=== PATIENT | female | born 1980 ===

== ENCOUNTER 2017-12-03 22:01 | Emergency (ER) | payer OTHER ==
[2017-12-03 22:22] VITALS: TEMP 98.7; O2SAT 98
--- NOTE | 2017-12-03 23:13 | ED PDOC ---
HPI: Hypertension/Hypotension Time Seen by Provider: 12/03/17 22:15 Chief Complaint (Nursing): Headache Chief Complaint (Provider): Hypertension History Per: Patient History/Exam Limitations: no limitations Onset/Duration Of Symptoms: Hrs Current Symptoms Are (Timing): Still Present Associated Symptoms: Headache. denies: Chest Pain Additional Complaint(s): 36 year old female presents to the ER for an evaluation of hypertension onset for 3 days. Patient states she gave on November 25 and had no issues with her blood pressure during her (she did have gestational DM though). She was taking Labetalol 100mg twice a day prior to preganncy and since her bp was high yesterday and today she called her doctor who told her to restart it now. She took one pill at 7pm and half of another half pill at 10pm today. Patient reports her blood pressure today was 172/100 and then went up to 178/117 with associated symptom of mild headache. She denies chest pain, vomiting or leg swelling, states she has only mild headache now, it is resolving. PMD: Dr. Lynn OBGYN: Dr. Chin (Non [facility] Provider) Past Medical History Reviewed: Historical Data, Nursing Documentation, Vital Signs Vital Signs: Last Vital Signs Temp 98.7 F 12/03/17 22:18 Pulse 64 12/03/17 22:18 Resp 16 12/03/17 22:18 BP 183/92 H 12/03/17 22:18 Pulse Ox 98 12/03/17 22:18 - Medical History PMH: Kidney Stones - Surgical History Other surgeries: cyst removal - Family History Family History: States: Unknown Family Hx - Social History Current smoker - smoking cessation education provided: No Alcohol: None Drugs: Denies - Allergies Allergies/Adverse Reactions: Allergies Allergy/AdvReac Type Severity Reaction Status Date / Time No Known Allergies Allergy Verified 12/03/17 22:17 Review of Systems ROS Statement: Except As Marked, All Systems Reviewed And Found Negative Constitutional: Negative for: Fever Gastrointestinal: Negative for: Vomiting Musculoskeletal: Negative for: Leg Pain Neurological: Positive for: Headache Physical Exam - Reviewed Nursing Documentation Reviewed: Yes Vital Signs Reviewed: Yes - Physical Exam Appears: Positive for: Non-toxic, No Acute Distress Head Exam: Positive for: ATRAUMATIC, NORMAL INSPECTION, NORMOCEPHALIC Skin: Positive for: Normal Color, Warm, Dry Eye Exam: Positive for: EOMI, Normal appearance, PERRL ENT: Positive for: Normal ENT Inspection Neck: Positive for: Normal, Painless ROM, Supple. Negative for: Decreased ROM Cardiovascular/Chest: Positive for: Regular Rate, Rhythm. Negative for: Murmur Respiratory: Positive for: Normal Breath Sounds. Negative for: Decreased Breath Sounds, Wheezing, Respiratory Distress Gastrointestinal/Abdominal: Positive for: Normal Exam, Soft. Negative for: Tenderness, Guarding, Rebound Back: Positive for: Normal Inspection. Negative for: L CVA Tenderness, R CVA Tenderness Extremity: Positive for: Normal ROM. Negative for: Tenderness, Pedal Edema, Deformity Neurologic/Psych: Positive for: Alert, content strategist II-XII, Oriented (x3), Gait (steady). Negative for: Motor/Sensory Deficits, Aphasia, Facial Droop - Laboratory Results Result Diagrams: 12/03/17 23:51 12/03/17 23:51 - ECG O2 Sat by Pulse Oximetry: 98 (RA) Pulse Ox Interpretation: Normal Medical Decision Making Medical Decision Making: Time: 2253 Initial Impression: Hypertension, rule out electrolyte abnormality, rule out possibility for preeclampsia post vs antecedent htn Initial Plan: CMP CBC w/ Differential Labetalol 10mg Urine C&S Urinalysis Reevaluation Patient resting comfortably throughout ER stay and was informed about her lab abnormalities. Her pressure is currently 120/81without any medication give, checked again, 20 min late, bp still stable at 120/80. pt states she feels fine. she was sleeping when i went into the room to reevaluate. reviewed blood test results with her, and that platelets were elevated. gave her copy for follow up with her doctor. Patient was not provided with Labetalol as she has at homeand given copies of her lab reports to provide to her PMD with whom she will follow up with today for further evaluation. Upon provider reevaluation patient is feeling better, is medically stable, and requires no further treatment in the ED at this time. Patient will be discharged home. Counseling was provided and all questions were answered regarding diagnosis and need for follow up with PMD. There is agreement to discharge plan. Return if symptoms persist or worsen. Scribe Attestation: Documented by Justin Rivera, acting as a scribe for Alexandra Grimes MD. Provider Scribe Attestation: All medical record entries made by the Scribe were at my direction and personally dictated by me. I have reviewed the chart and agree that the record accurately reflects my personal performance of the history, physical exam, medical decision making, and the department course for this patient. I have also personally directed, reviewed, and agree with the discharge instructions and disposition. Disposition - Clinical Impression Clinical Impression: Hypertension - Patient ED Disposition Is Patient to be Admitted: No Counseled Patient/Family Regarding: Studies Performed, Diagnosis, Need For Followup - Disposition Disposition: Routine/Home Disposition Time: 02:00 Condition: IMPROVED Additional Instructions: follow up with your primary doctor tomorrow for reevaluation return to the ED with any worsening or concerning symptoms you can bring the bloodwork results with you Instructions: High Blood Pressure in Adults Forms: [employer] (Khmer)
[2017-12-03 23:55] LABS: BASO # 0.1 K/uL (0.0-0.2); BASO % 0.6 % (0.0-2.0); EOS # 0.3 K/uL (0.0-0.7); EOS % 2.3 % (0.0-4.0); HEMOGLOBIN 12.2 g/dL (12.0-16.0); LYMPH # 1.9 K/uL (1.0-4.3); LYMPH % 15.3 % (20.0-40.0); MEAN CELL VOLUME 87.6 fl (81.0-99.0); MEAN CORPUSCULAR HGB CONC 33.1 g/dL (33.0-37.0); MEAN PLATELET VOLUME 6.6 fl (7.2-11.7); MONO # 0.7 K/uL (0.0-0.8); MONO % 5.7 % (0.0-10.0); NEUT # 9.7 K/uL (1.8-7.0); NEUT % 76.1 % (50.0-75.0); RBC 4.21 Mil/uL (3.80-5.20); RED CELL DISTRIBUTION WIDTH 14.3 % (11.5-14.5); WHITE BLOOD COUNT 12.7 K/uL (4.8-10.8)
[2017-12-03 23:57] LABS: URINE BILIRUBIN NEGATIVE (NEGATIVE); URINE BLOOD MODERATE (NEGATIVE); URINE CLARITY CLEAR (Clear); URINE COLOR COLORLESS (YELLOW); URINE GLUCOSE (UA) NEG (Normal); URINE LEUKOCYTE ESTERASE NEG Leu/uL (Negative); URINE PROTEIN NEGATIVE (NEGATIVE); URINE UROBILINOGEN 0.2-1.0 mg/dL (0.2-1.0)
[2017-12-04 00:04] LABS: ALBUMIN 3.6 g/dL (3.5-5.0); ALT/SGPT 49 U/L (9-52); AST/SGOT 26 U/L (14-36); BLOOD UREA NITROGEN 16 mg/dl (7-17); CALCIUM 9.5 mg/dL (8.4-10.2); GFR NON-AFRICAN AMERICAN > 60
[2017-12-04] MEDS: Labetalol 5 mg/ml Inj 20ML IVP STA (00:32)
[2017-12-04 10:33] VITALS: BP 134/84; PULSE 74; RESP 17
== END 2017-12-04 02:20 | disposition home or self-care (01) ==
LOC: H.ER 22:01
DX: I10 Essential (primary) hypertension (principal)